=== PATIENT | male | born 1975 | race Caucasian/White ===

== ENCOUNTER 2018-02-19 00:14 | Emergency (ER) | payer MEDICAID ==
[~2018-02-19] VITALS: Ht 177.8 cm; Wt 100.0 kg
[~2018-02-19 00:14] MED LIST: CLIN300C85 PO; OMEP20CA4 PO; TOLN30CR TP
[2018-02-19] MEDS ORDERED: predniSONE 20 mg tablet PO ONE (00:40)
[2018-02-19] MEDS ORDERED: PRED20TA PO (00:43)
[2018-02-19 00:55] VITALS: BP 183/109
== END 2018-02-19 00:56 | disposition home or self-care (01) ==
LOC: ER 00:14
DX: R21 Rash and other nonspecific skin eruption (principal); F15.90 Other stimulant use, unspecified, uncomplicated; F17.200 Nicotine dependence, unspecified, uncomplicated; Z79.2 Long term (current) use of antibiotics; Z79.899 Other long term (current) drug therapy
CPT/HCPCS: 99283; J7512

== ENCOUNTER 2018-04-20 21:52 | Emergency (ER) | payer MEDICAID ==
[~2018-04-20] VITALS: Ht 177.8 cm; Wt 85.0 kg
[2018-04-20] MEDS ORDERED: ondansetron/PF 4mg/2ml inj IV ONE (22:05)
[2018-04-20] MEDS ORDERED: normal saline 1000ML IV soln IVB ONE (22:05)
[2018-04-20 23:12] LABS: BASOPHILS % (AUTO) 0 % (0-1); EOSINOPHILS # (AUTO) 0.7 X10'3 (0-0.9); HEMATOCRIT 45.9 % (42.0-52.0); HEMOGLOBIN 15.9 g/dl (14.0-17.9); LYMPHOCYTES # (AUTO) 1.4 X10'3 (1.1-4.8); LYMPHOCYTES % (AUTO) 7.6 % (21-51); MEAN CORPUSCULAR HEMOGLOBIN 29.8 PG (27.0-31.0); MEAN CORPUSCULAR HGB CONC 34.6 % (33.0-36.5); MEAN CORPUSCULAR VOLUME 86.1 FL (78-98); MEAN PLATELET VOLUME 7.9 FL (7.4-10.4); MONOCYTES # (AUTO) 0.7 X10'3 (0-0.9); NEUTROPHILS # (AUTO) 15.5 X10'3 (1.8-7.7); NEUTROPHILS % (AUTO) 84.4 % (42-75); PLATELET COUNT 231 X10'3 (140-440); RED BLOOD COUNT 5.33 X10'6 (4.70-6.10); RED CELL DISTRIBUTION WIDTH 14.1 % (11.5-14.5); WHITE BLOOD COUNT 18.3 X10'3 (4.5-11.0)
[2018-04-20 23:27] LABS: ALANINE AMINOTRANSFERASE 37 U/L (12-78); ALBUMIN 3.3 G/DL (3.4-5.0); ALBUMIN/GLOBULIN RATIO 1.2 (1.1-1.5); ALKALINE PHOSPHATASE 85 IU/L (46-116); ANION GAP 7 (8-16); ASPARTATE AMINO TRANSFERASE 9 U/L (10-37); BILIRUBIN,TOTAL 0.7 MG/DL (0.1-1.0); BLOOD UREA NITROGEN 18 MG/DL (7-18); BUN/CREATININE RATIO 17.1 (5.4-32.0); CALCIUM 7.6 MG/DL (8.5-10.1); CHLORIDE 108 MMOL/L (99-107); CREATININE 1.05 MG/DL (0.60-1.10); GLUCOSE 98 MG/DL (70-104); LIPASE 111 U/L (73-393); POTASSIUM 3.8 MMOL/L (3.5-5.1); SODIUM 139 MMOL/L (135-145); TOTAL CARBON DIOXIDE 23.9 MMOL/L (24-32); eGFR 77 ML/MIN
[2018-04-20 23:28] LABS: ETHANOL < 0.010 GM/DL (0.0-0.010)
[2018-04-20] MEDS ORDERED: ONDA4TAB9 SL (23:30)
[2018-04-20 23:36] VITALS: BP 131/69
== END 2018-04-20 23:42 | disposition home or self-care (01) ==
LOC: ER 21:53
DX: K52.9 Noninfective gastroenteritis and colitis, unspecified (principal); R10.31 Right lower quadrant pain; I10 Essential (primary) hypertension; F15.90 Other stimulant use, unspecified, uncomplicated; Z88.5 Allergy status to narcotic agent; Z88.8 Allergy status to other drugs, medicaments and biological substances; Z79.2 Long term (current) use of antibiotics; Z79.899 Other long term (current) drug therapy
CPT/HCPCS: 36415; 80053; 80320; 83690; 85025; 96360; 99284; J7030

== ENCOUNTER 2018-08-21 18:59 | Emergency (ER) | payer MEDICAID ==
[~2018-08-21] VITALS: Ht 180.3 cm; Wt 100.0 kg
[2018-08-21] MEDS ORDERED: penicillin V potassium 500mg tablet PO ONE (21:10)
[2018-08-21] MEDS ORDERED: PENI500T2 PO (21:12)
[2018-08-21 21:20] VITALS: BP 128/88
== END 2018-08-21 21:21 | disposition home or self-care (01) ==
LOC: ER 18:59
DX: J02.0 Streptococcal pharyngitis (principal); I10 Essential (primary) hypertension; F15.90 Other stimulant use, unspecified, uncomplicated; Z88.5 Allergy status to narcotic agent; Z88.8 Allergy status to other drugs, medicaments and biological substances; Z79.2 Long term (current) use of antibiotics; Z79.899 Other long term (current) drug therapy
CPT/HCPCS: 71045; 87880; 99284

== ENCOUNTER 2018-10-20 17:45 | Emergency (ER) | payer MEDICAID ==
[~2018-10-20] VITALS: Ht 180.3 cm; Wt 98.0 kg
[2018-10-20 18:08] VITALS: BP 150/107
== END 2018-10-20 20:22 | disposition left against medical advice (07) ==
LOC: ER 17:46
DX: R07.89 Other chest pain (principal); Z53.21 Procedure and treatment not carried out due to patient leaving prior to being seen by health care provider
CPT/HCPCS: 93005

== ENCOUNTER 2021-07-28 22:03 | Emergency (ER) | payer MEDICAID ==
[~2021-07-28] VITALS: Ht 180.3 cm; Wt 96.7 kg
[~2021-07-28 22:03] MED LIST changes: +CLIN-97 PO; -CLIN300C85 PO
[2021-07-28 22:45] LABS: BASOPHILS % (AUTO) 0.4 % (0-1); EOSINOPHILS # (AUTO) 0.3 X10'3 (0-0.9); EOSINOPHILS % (AUTO) 2.8 % (0-6); HEMATOCRIT 47.5 % (42.0-52.0); HEMOGLOBIN 16.1 g/dl (14.0-17.9); LYMPHOCYTES # (AUTO) 1.7 X10'3 (1.1-4.8); LYMPHOCYTES % (AUTO) 14.4 % (21-51); MEAN CORPUSCULAR HEMOGLOBIN 29.4 PG (27.0-31.0); MEAN CORPUSCULAR VOLUME 86.6 FL (78-98); MEAN PLATELET VOLUME 7.2 FL (7.4-10.4); MONOCYTES # (AUTO) 0.2 X10'3 (0-0.9); MONOCYTES % (AUTO) 1.8 % (2-12); NEUTROPHILS # (AUTO) 9.3 X10'3 (1.8-7.7); NEUTROPHILS % (AUTO) 80.6 % (42-75); PLATELET COUNT 293 X10'3 (140-440); RED BLOOD COUNT 5.49 X10'6 (4.70-6.10); RED CELL DISTRIBUTION WIDTH 13.9 % (11.5-14.5); WHITE BLOOD COUNT 11.5 X10'3 (4.5-11.0)
--- NOTE | 2021-07-28 22:45 | NUR ---
STROKE RN AT BEDSIDE, TELENEURO HAS BEEN CALLED, ENID IS AT BEDSIDE ON STANDBY, HEAD CT COMPLETED, LABS DRAWN, ER MD HAS EVALUATED PT
[2021-07-28 22:48] LABS: PARTIAL THROMBOPLASTIN TIME 27 SECONDS (22-32)
[2021-07-28 22:50] LABS: ANION GAP 12 (8-16); BILIRUBIN,TOTAL 0.4 MG/DL (0.1-1.0); BLOOD UREA NITROGEN 14 MG/DL (7-18); BUN/CREATININE RATIO 13.1 (5.4-32.0); CALCIUM 9.2 MG/DL (8.5-10.1); CHLORIDE 105 MMOL/L (99-107); CREATININE 1.07 MG/DL (0.60-1.10); GLUCOSE 93 MG/DL (70-104); POTASSIUM 3.7 MMOL/L (3.5-5.1); SODIUM 145 MMOL/L (135-145); TOTAL CARBON DIOXIDE 28.1 MMOL/L (24-32); TOTAL PROTEIN 7.7 G/DL (6.4-8.2); eGFR 75 ML/MIN
[2021-07-28 22:51] LABS: ALANINE AMINOTRANSFERASE 29 U/L (12-78); ALBUMIN 4.3 G/DL (3.4-5.0); ALBUMIN/GLOBULIN RATIO 1.3 (1.1-1.5); ALKALINE PHOSPHATASE 107 IU/L (46-116); ASPARTATE AMINO TRANSFERASE 19 U/L (10-37)
[2021-07-28 23:10] LABS: TOTAL CELLS COUNTED 100
--- NOTE | 2021-07-28 23:10 | NUR ---
I did not do a swallow eval since he is vomiting and did not want to gag him or give him water.
[2021-07-28 23:11] LABS: PLATELET ESTIMATE NORMAL
[2021-07-28 23:12] LABS: POIKILOCYTOSIS FEW; TEAR DROP CELLS FEW
[2021-07-28] MEDS ORDERED: iohexol 350MG/ML 100ml bottle IV ONE (23:15)
--- NOTE | 2021-07-28 23:19 | NUR ---
For his neuro assessment he did have blurred vision in the right eye; and he said he can only see my eyelashes with the right eye but he did track with the right eye. He also said that the right arm felt smoother and that his right side of the face was still numb but better than when he came into the ER. He also said that the right eye was blurry but not as blury as it had been. He is also complainig of dizziness at this time.
[2021-07-28] MEDS ORDERED: ondansetron/PF 4mg/2ml inj IV ONE (23:20)
--- NOTE | 2021-07-28 23:30 | NUR ---
Late note, I did tell the neurologist that patient was c/o that his throat on the right side was swelling. There is a CTA head and neck with contrast ordered at this time.
--- NOTE | 2021-07-29 05:53 | NUR ---
PT UNHOOKED HIMSELF FROM THE MONITOR AND AMBULATED TO BATHROOM AND BACK TO HIS GURNEY. WHEN I RE-ASSESSED PT, HE REPORTS THAT THE BLURRINESS IS GONE WELL THE NUMBNESS TO HIS RIGHT HAND. HE IS STILL COMPLAINING OF HIS BOWEL MOVEMENTS 'SMELLING TOXIC' HE STATED, 'I KEEP GETTING WEIRD THINGS HAPPEN TO ME THAT NO ONE CAN UNDERSTAND'
[2021-07-29 06:18] VITALS: BP 143/90
== END 2021-07-29 06:22 | disposition home or self-care (01) ==
LOC: ER 22:04
DX: R53.1 Weakness (principal); T43.625A Adverse effect of amphetamines, initial encounter; Y92.89 Other specified places as the place of occurrence of the external cause
CPT/HCPCS: 36415; 70450; 70496; 70498; 71045; 80053; 82948; 84484; 85007; 85025; 85610; 85730; 93005; 96374; 99285; J2405; Q9967

== ENCOUNTER 2021-08-27 13:34 | Emergency (ER) | payer MEDICAID ==
[~2021-08-27] VITALS: Ht 177.8 cm; Wt 93.2 kg
[2021-08-27 16:04] VITALS: BP 154/100
[2021-08-27 17:21] LABS: CLARITY,URINE SLIGHTLY CLOUDY (Clear); COLOR,URINE YELLOW (Yellow); GLUCOSE, URINE NEGATIVE (Neg); KETONES,URINE TRACE mg/dl (Neg); LEUKOCYTE ESTERASE ,URINE SMALL (Neg); NITRITES, URINE NEGATIVE (Neg); OCCULT BLOOD,URINE NEGATIVE (Neg); PROTEIN,URINE NEGATIVE (Neg); UROBILINOGEN,URINE 0.2 E.U/dL (0.2-1.0)
[2021-08-27 17:25] LABS: UA COLLECTION TYPE URINAL
[2021-08-27 17:33] LABS: MUCUS STRANDS MANY /LPF (Neg); SQUAMOUS EPITHELIAL CELL,UR FEW /LPF (FEW)
[2021-08-27 17:37] LABS: HYALINE CASTS 0-3 /LPF (NEGATIVE)
[2021-08-27 17:39] LABS: BACTERIA,URINE FEW /HPF (Neg); RBC,URINE 0-2 /HPF (0-2)
[2021-08-27 17:45] LABS: WBC,URINE 20-30 /HPF (0-4)
--- NOTE | 2021-08-27 20:22 | NUR ---
PATIENT IN [facility], STATES PAIN IS INCREASING. 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 THIS HOOP DRIVING MACHINE OPERATOR ADVISED THAT THE COMPUTER GRAPHICS ILLUSTRATOR WOULD BE ADVIDED OF HIS INCREASING DISCOMFORT. PATIENT IS DRINKING WATER, HE STATES THAT HE CAN'T VOID NOW.
== END 2021-08-27 21:12 | disposition left against medical advice (07) ==
LOC: ER 13:35
DX: L23.7 Allergic contact dermatitis due to plants, except food (principal); I10 Essential (primary) hypertension; F15.90 Other stimulant use, unspecified, uncomplicated; R30.0 Dysuria; Z88.8 Allergy status to other drugs, medicaments and biological substances; Z79.2 Long term (current) use of antibiotics; Z79.899 Other long term (current) drug therapy
CPT/HCPCS: 36415; 81001; 87088; 87491

== ENCOUNTER 2022-01-02 03:00 | Emergency (ER) | payer MEDICAID ==
[~2022-01-02] VITALS: Ht 180.3 cm; Wt 93.2 kg
[2022-01-02] MEDS ORDERED: SULF1TAB49 PO (05:18)
[2022-01-02] MEDS ORDERED: TETanus/Pertussis (Acell)/Diphther VAC/PF (Tdap-Adult) 0.5ml syringe IMVAC ONE (05:20)
[2022-01-02] MEDS ORDERED: ondansetron 4mg rapidly disintigrating tab PO ONE (05:20)
[2022-01-02] MEDS ORDERED: sulfamethoxazole/trimethoprim DS (800/160mg) tablet PO ONE (05:20)
[2022-01-02 05:58] VITALS: BP 122/75
== END 2022-01-02 06:00 | disposition home or self-care (01) ==
LOC: ER 03:01
DX: L02.414 Cutaneous abscess of left upper limb (principal); F15.10 Other stimulant abuse, uncomplicated; I10 Essential (primary) hypertension; Z88.5 Allergy status to narcotic agent; Z79.899 Other long term (current) drug therapy
CPT/HCPCS: 10060; 90471; 90715; 99283

== ENCOUNTER 2022-02-03 01:18 | Emergency (ER) | payer MEDICAID ==
[~2022-02-03] VITALS: Ht 180.3 cm; Wt 45.5 kg
[2022-02-03 01:23] VITALS: BP 156/95
[2022-02-03] MEDS ORDERED: ondansetron 4mg rapidly disintigrating tab PO ONE (01:40)
[2022-02-03] MEDS ORDERED: sulfamethoxazole/trimethoprim DS (800/160mg) tablet PO ONE (01:40)
[2022-02-03] MEDS ORDERED: SULF1TAB49 PO (01:41)
== END 2022-02-03 02:01 | disposition home or self-care (01) ==
LOC: ER 01:19
DX: L03.317 Cellulitis of buttock (principal); I10 Essential (primary) hypertension; F15.90 Other stimulant use, unspecified, uncomplicated; Z88.8 Allergy status to other drugs, medicaments and biological substances; Z79.2 Long term (current) use of antibiotics; Z79.899 Other long term (current) drug therapy
CPT/HCPCS: 99283

== ENCOUNTER 2022-03-09 20:20 | Emergency (ER) | payer MEDICAID ==
[~2022-03-09] VITALS: Ht 180.3 cm; Wt 91.0 kg
[2022-03-09] MEDS ORDERED: acetaminophen 325mg tablet PO STA (20:48)
[2022-03-09 21:29] LABS: BASOPHILS % (AUTO) 0.7 % (0-1); EOSINOPHILS # (AUTO) 0.3 X10'3 (0-0.9); EOSINOPHILS % (AUTO) 3.8 % (0-6); HEMATOCRIT 40.8 % (42.0-52.0); HEMOGLOBIN 13.8 g/dl (14.0-17.9); LYMPHOCYTES # (AUTO) 0.9 X10'3 (1.1-4.8); LYMPHOCYTES % (AUTO) 12.6 % (21-51); MEAN CORPUSCULAR HEMOGLOBIN 28.9 PG (27.0-31.0); MEAN CORPUSCULAR HGB CONC 33.8 g/dL (33.0-36.5); MEAN CORPUSCULAR VOLUME 85.6 FL (78-98); MEAN PLATELET VOLUME 7.5 FL (7.4-10.4); MONOCYTES # (AUTO) 0.6 X10'3 (0-0.9); MONOCYTES % (AUTO) 8.8 % (2-12); NEUTROPHILS # (AUTO) 5.2 X10'3 (1.8-7.7); NEUTROPHILS % (AUTO) 74.1 % (42-75); PLATELET COUNT 197 X10'3 (140-440); RED BLOOD COUNT 4.76 X10'6 (4.70-6.10); RED CELL DISTRIBUTION WIDTH 14.3 % (11.5-14.5)
[2022-03-09 21:33] LABS: ALANINE AMINOTRANSFERASE 24 U/L (12-78); ALBUMIN 3.7 G/DL (3.4-5.0); ALBUMIN/GLOBULIN RATIO 1.2 (1.1-1.5); ALKALINE PHOSPHATASE 106 IU/L (46-116); ANION GAP 6 (8-16); ASPARTATE AMINO TRANSFERASE 21 U/L (10-37); BILIRUBIN,TOTAL 0.5 MG/DL (0.1-1.0); BLOOD UREA NITROGEN 15 MG/DL (7-18); BUN/CREATININE RATIO 12.2 (5.4-32.0); CALCIUM 8.8 MG/DL (8.5-10.1); CHLORIDE 106 MMOL/L (99-107); CREATININE 1.23 MG/DL (0.60-1.10); GLUCOSE 101 MG/DL (70-104); MAGNESIUM 2.2 MG/DL (1.5-2.4); POTASSIUM 3.4 MMOL/L (3.5-5.1); SODIUM 141 MMOL/L (135-145); TOTAL CARBON DIOXIDE 28.9 MMOL/L (24-32); TOTAL PROTEIN 6.7 G/DL (6.4-8.2); eGFR 63 ML/MIN
[2022-03-09 22:03] VITALS: BP 128/78
== END 2022-03-09 22:13 | disposition home or self-care (01) ==
LOC: ER 20:20
DX: U07.1 COVID-19 (principal); I10 Essential (primary) hypertension; F15.10 Other stimulant abuse, uncomplicated; Z88.5 Allergy status to narcotic agent
CPT/HCPCS: 36415; 71045; 80053; 83605; 83735; 84145; 85025; 87040; 87502; 87503; 87635; 93005; 99285; C9803

== ENCOUNTER 2023-02-02 17:47 | Inpatient (IN) | payer MEDICAID ==
[~2023-02-02] VITALS: Ht 182.9 cm; Wt 90.9 kg
[2023-02-02] MEDS ORDERED: bacitracin 15gm ointment TP ONE (19:35)
[2023-02-02] MEDS ORDERED: LIDOcaine 1% 30ml preserv. free vial IJ ONE (19:40)
[2023-02-02] MEDS ORDERED: cephalexin 250mg capsule PO ONE (20:20)
[2023-02-02] MEDS ORDERED: piperacillin/tazo 3.375gm/50ml 50 ML IV ONE (21:55)
[2023-02-02] MEDS ORDERED: vancomycin/NS 1 GM ADD-VANTAGE 250 ML IV ONE (21:55)
[2023-02-02 22:24] LABS: BASOPHILS # (AUTO) 0.1 X10'3 (0-0.2); BASOPHILS % (AUTO) 0.7 % (0-1); EOSINOPHILS # (AUTO) 0.5 X10'3 (0-0.9); EOSINOPHILS % (AUTO) 6.2 % (0-6); HEMATOCRIT 43.6 % (42.0-52.0); HEMOGLOBIN 14.8 g/dl (14.0-17.9); LYMPHOCYTES # (AUTO) 2.5 X10'3 (1.1-4.8); LYMPHOCYTES % (AUTO) 28.9 % (21-51); MEAN CORPUSCULAR HEMOGLOBIN 29.5 PG (27.0-31.0); MEAN CORPUSCULAR VOLUME 86.7 FL (78-98); MEAN PLATELET VOLUME 7.3 FL (7.4-10.4); MONOCYTES # (AUTO) 0.6 X10'3 (0-0.9); MONOCYTES % (AUTO) 6.7 % (2-12); NEUTROPHILS % (AUTO) 57.5 % (42-75); PLATELET COUNT 238 X10'3 (140-440); RED BLOOD COUNT 5.03 X10'6 (4.70-6.10); RED CELL DISTRIBUTION WIDTH 14.2 % (11.5-14.5); WHITE BLOOD COUNT 8.8 X10'3 (4.5-11.0)
[2023-02-02 22:37] LABS: ALANINE AMINOTRANSFERASE 21 U/L (12-78); ALBUMIN 3.9 G/DL (3.4-5.0); ALBUMIN/GLOBULIN RATIO 1.4 (1.1-1.5); ALKALINE PHOSPHATASE 102 IU/L (46-116); ANION GAP 2 (8-16); ASPARTATE AMINO TRANSFERASE 18 U/L (10-37); BILIRUBIN,TOTAL 0.6 MG/DL (0.1-1.0); BLOOD UREA NITROGEN 12 MG/DL (7-18); BUN/CREATININE RATIO 11.8 (10.0-20.0); CALCIUM 8.8 MG/DL (8.5-10.1); CHLORIDE 106 MMOL/L (99-107); CREATININE 1.02 MG/DL (0.60-1.10); GLUCOSE 94 MG/DL (70-104); POTASSIUM 3.9 MMOL/L (3.5-5.1); SODIUM 139 MMOL/L (135-145); TOTAL CARBON DIOXIDE 31.3 MMOL/L (24-32); TOTAL PROTEIN 6.6 G/DL (6.4-8.2); eGFR 78 ML/MIN
[2023-02-02] MEDS ORDERED: NO HOME MEDS (23:09)
[2023-02-02] MEDS ORDERED: potassium Cl 20 mEq SR tablet PO PRN ×2 (23:25)
[2023-02-02] MEDS ORDERED: magnesium Cl slow-release 64mg tablet PO PRN (23:25)
[2023-02-02] MEDS ORDERED: morphine 2 MG/ML inj. syringe IV PRN ×2 (23:25)
[2023-02-02] MEDS ORDERED: magnesium 2GM in 50ml NS 50 ML IV PRN (23:25)
[2023-02-02] MEDS ORDERED: acetaminophen 325mg tablet PO PRN (23:25)
[2023-02-02] MEDS ORDERED: mag hydrox/Alum hydrox/simeth 30ml oral suspension PO PRN (23:25)
[2023-02-02] MEDS ORDERED: magnesium 4gm in 100ml NS 100 ML IV PRN (23:25)
[2023-02-02] MEDS ORDERED: ondansetron/PF 4mg/2ml inj IV PRN (23:25)
[2023-02-02] MEDS ORDERED: magnesium hydroxide 30ml (MOM) UD suspension PO PRN (23:25)
[2023-02-02] MEDS ORDERED: potassium Cl 40MEQ/1/2NS 520ml 520 ML IV PRN (23:25)
[2023-02-02] MEDS ORDERED: metoprolol tartrate 50mg tablet PO ONE (23:35)
[2023-02-03] MEDS ORDERED: VANCOmycin 1250MG/NS 250ml Bag 250 ML IV SCH
[2023-02-03] MEDS ORDERED: metoprolol tartrate 12.5mg (1/2 tablet) PO ONE (00:10)
[2023-02-03] MEDS: normal saline 1000ml 1,000 ML IV SCH ×3 (00:14→20:32)
--- NOTE | 2023-02-03 03:00 | NUR ---
Patient in room ORTHO 4006. I have received report from hamzah wayne and had the opportunity to ask questions and assume patient care.
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
[2023-02-03 04:22] VITALS: BP 161/93
[2023-02-03 06:00] VITALS: BP 159/101
--- NOTE | 2023-02-03 06:45 | NUR ---
Patient in room ORTHO 4006. I have received report from Gillian SOTO and had the opportunity to ask questions and assume patient care.
[2023-02-03 06:55] LABS: BASOPHILS # (AUTO) 0.1 X10'3 (0-0.2); BASOPHILS % (AUTO) 0.9 % (0-1); EOSINOPHILS # (AUTO) 0.5 X10'3 (0-0.9); EOSINOPHILS % (AUTO) 6.3 % (0-6); HEMATOCRIT 43.8 % (42.0-52.0); HEMOGLOBIN 14.7 g/dl (14.0-17.9); LYMPHOCYTES # (AUTO) 2.3 X10'3 (1.1-4.8); LYMPHOCYTES % (AUTO) 27.6 % (21-51); MEAN CORPUSCULAR HEMOGLOBIN 29.2 PG (27.0-31.0); MEAN CORPUSCULAR HGB CONC 33.6 g/dL (33.0-36.5); MEAN CORPUSCULAR VOLUME 86.8 FL (78-98); MEAN PLATELET VOLUME 7.5 FL (7.4-10.4); MONOCYTES # (AUTO) 0.6 X10'3 (0-0.9); MONOCYTES % (AUTO) 7.1 % (2-12); NEUTROPHILS # (AUTO) 4.8 X10'3 (1.8-7.7); NEUTROPHILS % (AUTO) 58.1 % (42-75); PLATELET COUNT 235 X10'3 (140-440); RED BLOOD COUNT 5.05 X10'6 (4.70-6.10); RED CELL DISTRIBUTION WIDTH 14.4 % (11.5-14.5); WHITE BLOOD COUNT 8.3 X10'3 (4.5-11.0)
[2023-02-03 07:08] LABS: ALANINE AMINOTRANSFERASE 16 U/L (12-78); ALBUMIN 3.4 G/DL (3.4-5.0); ALBUMIN/GLOBULIN RATIO 1.3 (1.1-1.5); ALKALINE PHOSPHATASE 98 IU/L (46-116); ANION GAP 6 (8-16); ASPARTATE AMINO TRANSFERASE 15 U/L (10-37); BILIRUBIN,TOTAL 0.8 MG/DL (0.1-1.0); BLOOD UREA NITROGEN 14 MG/DL (7-18); BUN/CREATININE RATIO 16.1 (10.0-20.0); CALCIUM 8.8 MG/DL (8.5-10.1); CHLORIDE 106 MMOL/L (99-107); CREATININE 0.87 MG/DL (0.60-1.10); GLUCOSE 97 MG/DL (70-104); MAGNESIUM 2.2 MG/DL (1.5-2.4); POTASSIUM 3.7 MMOL/L (3.5-5.1); SODIUM 139 MMOL/L (135-145); TOTAL CARBON DIOXIDE 26.7 MMOL/L (24-32); TOTAL PROTEIN 6.1 G/DL (6.4-8.2); eGFR > 90 ML/MIN
[2023-02-03] MEDS: piperacillin/tazo 3.375gm/50ml 50 ML IV SCH ×3 (07:19→16:56)
[2023-02-03] MEDS: K and/or MAG REPLACEMENT MC SCH ×2 (08:00→20:00)
[2023-02-03 09:10] VITALS: BP 140/99
[2023-02-03] MEDS: metoprolol tartrate 12.5mg (1/2 tablet) PO SCH ×2 (09:11→20:40)
[2023-02-03] MEDS: docusate sod 100mg capsule PO SCH ×2 (09:12→20:32)
[2023-02-03 10:00] VITALS: BP 135/95
[2023-02-03] MEDS: oxyCODONE/APAP 5-325mg tablet PO PRN (12:36)
[2023-02-03] MEDS: vancomycin/NS 1 GM ADD-VANTAGE 250 ML IV SCH ×2 (12:50→20:32)
--- NOTE | 2023-02-03 14:30 | NUR ---
Call placed to pharmacy r/t new IV vanco order. Pharmacist stated that the 1250mg dose was discontinued, resource nurse hung 1250 vanco prior to discontinue. Pharmacist notified and stated that med was not marked as administered. Verified in room with charge nurse that 1200 1250mg vanco order was hung and complete. Pharmacist notified and instructed charge nurse to stacy med as administered and they will retime next dose.
--- NOTE | 2023-02-03 14:43 | NUR ---
The noon dose of 1250 mg Vancomycin was hung by the resource nurse Shira Smith but not scanned. Went to room with Cande JARRETT to verify medication was administered at noon, it was the right dose and right time prior to the change. Addendum: 02/03/23 at 1446 by Marcelle Bose RN Non admined the next noon dose of 1000mg Vancomycin
--- NOTE | 2023-02-03 18:30 | NUR ---
Patient in room ORTHO 4006. I have received report from BRITTANY Castellon and had the opportunity to ask questions and assume patient care. Addendum: 02/03/23 at 1830 by uJli Ramirez RN Amended: Links added.
[2023-02-03 18:31] VITALS: BP 125/83
--- NOTE | 2023-02-03 18:39 | NUR ---
Problems reprioritized. Patient report given, questions answered & plan of care reviewed with Juli SOTO.
--- NOTE | 2023-02-03 18:53 | NUR ---
Student documentation: I have reviewed and agree with all interventions, assessments performed and documented by Cande JARRETT. Added my own findings.
[2023-02-03 22:00] VITALS: BP 165/90
[2023-02-04] VITALS (16 sets, daily range): BP systolic 114–170; BP diastolic 71–102
[2023-02-04] MEDS: oxyCODONE/APAP 5-325mg tablet PO PRN ×4 (00:07→21:30)
[2023-02-04] MEDS: piperacillin/tazo 3.375gm/50ml 50 ML IV SCH ×4 (00:07→17:00)
[2023-02-04] MEDS: normal saline 1000ml 1,000 ML IV SCH ×2 (05:25→15:33)
[2023-02-04] MEDS: vancomycin/NS 1 GM ADD-VANTAGE 250 ML IV SCH ×3 (05:29→23:05)
[2023-02-04 06:25] LABS: BASOPHILS # (AUTO) 0.1 X10'3 (0-0.2); BASOPHILS % (AUTO) 0.7 % (0-1); EOSINOPHILS # (AUTO) 0.4 X10'3 (0-0.9); EOSINOPHILS % (AUTO) 5.2 % (0-6); HEMATOCRIT 43.8 % (42.0-52.0); HEMOGLOBIN 14.6 g/dl (14.0-17.9); MEAN CORPUSCULAR HEMOGLOBIN 29.2 PG (27.0-31.0); MEAN CORPUSCULAR HGB CONC 33.4 g/dL (33.0-36.5); MEAN CORPUSCULAR VOLUME 87.2 FL (78-98); MEAN PLATELET VOLUME 7.7 FL (7.4-10.4); MONOCYTES # (AUTO) 0.5 X10'3 (0-0.9); MONOCYTES % (AUTO) 6.2 % (2-12); NEUTROPHILS # (AUTO) 5.3 X10'3 (1.8-7.7); NEUTROPHILS % (AUTO) 63.9 % (42-75); PLATELET COUNT 221 X10'3 (140-440); RED BLOOD COUNT 5.02 X10'6 (4.70-6.10); RED CELL DISTRIBUTION WIDTH 14.4 % (11.5-14.5); WHITE BLOOD COUNT 8.3 X10'3 (4.5-11.0)
[2023-02-04 06:33] LABS: APTT 32 SECONDS (22-32)
[2023-02-04] MEDS ORDERED: BUPIVAcaine/PF 2.5 mg/ml (0.25%) 30ml vial ONE (06:39)
[2023-02-04] MEDS ORDERED: vancomycin 1,000mg inj ONE (06:39)
[2023-02-04 06:47] LABS: ALANINE AMINOTRANSFERASE 19 U/L (12-78); ALBUMIN 3.4 G/DL (3.4-5.0); ALBUMIN/GLOBULIN RATIO 1.3 (1.1-1.5); ALKALINE PHOSPHATASE 93 IU/L (46-116); ANION GAP 5 (8-16); ASPARTATE AMINO TRANSFERASE 11 U/L (10-37); BILIRUBIN,TOTAL 0.5 MG/DL (0.1-1.0); BLOOD UREA NITROGEN 17 MG/DL (7-18); BUN/CREATININE RATIO 18.3 (10.0-20.0); CALCIUM 8.5 MG/DL (8.5-10.1); CHLORIDE 106 MMOL/L (99-107); CREATININE 0.93 MG/DL (0.60-1.10); GLUCOSE 95 MG/DL (70-104); MAGNESIUM 2.4 MG/DL (1.5-2.4); POTASSIUM 3.9 MMOL/L (3.5-5.1); SODIUM 138 MMOL/L (135-145); TOTAL CARBON DIOXIDE 26.9 MMOL/L (24-32); eGFR 87 ML/MIN
[2023-02-04] MEDS ORDERED: ondansetron/PF 4mg/2ml inj IV PRN (07:15)
[2023-02-04] MEDS ORDERED: labetalol 20mg/4ml (5mg/ml) syringe IV PRN (07:15)
[2023-02-04] MEDS ORDERED: proCHLORperazine 10 MG/2 ml inj IV PRN (07:15)
[2023-02-04] MEDS ORDERED: morphine 4 MG/ML inj SYRINge IV PRN (07:15)
[2023-02-04] MEDS ORDERED: hydrALAZINE 20mg/ml inj. IV PRN (07:15)
[2023-02-04] MEDS ORDERED: ringers solution, lacted 1,000 ML IV SCH (07:15)
[2023-02-04] MEDS ORDERED: meperidine/PF 25mg/ml syringe IV PRN ×3 (07:15)
[2023-02-04] MEDS ORDERED: acetaminophen 1,000mg/100ml IV 100 ML IV PRN (07:15)
[2023-02-04] MEDS ORDERED: morphine 2 MG/ML inj. syringe IV PRN (07:15)
[2023-02-04] MEDS ORDERED: fentaNYL/PF 50MCG/1 ML 2ML syringe ONE (07:29)
[2023-02-04] MEDS ORDERED: propofol inj 20 ML IV ONE (07:40)
[2023-02-04] MEDS ORDERED: LIDOcaine 2% (20mg/ml) 5ml vial ONE (07:40)
[2023-02-04] MEDS ORDERED: ondansetron/PF 4mg/2ml inj ONE (07:40)
[2023-02-04] MEDS ORDERED: dexamethasone sod phosphate 4mg/ml inj. ONE (07:40)
[2023-02-04] MEDS ORDERED: midazolam 1 mg/ML 2ml injection ONE (07:40)
[2023-02-04] MEDS: docusate sod 100mg capsule PO SCH ×2 (08:00→21:28)
[2023-02-04] MEDS: metoprolol tartrate 12.5mg (1/2 tablet) PO SCH ×3 (08:00→21:29)
[2023-02-04] MEDS: K and/or MAG REPLACEMENT MC SCH ×2 (08:00→20:00)
--- NOTE | 2023-02-04 08:01 | NUR ---
Received from OR via SURGICAL BED , accompanied by Anesthesiologist AZIZA and report given by Anesthesiolgist. PATIENT WITH 20G PIV IN RIGHT UE RUNNING LR AT 00. 10L MASK ON WITH 99% SATURATIONS. LEFT ELBOW IN MG BANDAGE. + RADIAL PULSE PRESENT THAT HAS ASTRONG RADIAL PULSE UPON ARRIVAL FROM THE OR. VSS AT THIS TIME. WILL CONTIUE TO ASSESS AND TREAT NEEDED. Addendum: 02/04/23 at 0811 by Luis Delaney RN, RN Amended: Links added.
--- NOTE | 2023-02-04 08:16 | NUR ---
PATIENT ROUSED SELF FROM ANESTHESIA. I REMOVED ORAL AIRWAY AT THIS TIME AND PATIENT STATES HE HAS NO PAIN AT THIS TIME. Addendum: 02/04/23 at 0816 by Luis Delaney RN, RN Amended: Links added.
--- NOTE | 2023-02-04 08:41 | NUR ---
REPORT GIVEN AND ALL QUESTIONS ANSWERED. PATIENT TRANSFERRED TO ORTHO.TRANSFER: NO BELONGINGS PRESENT A. RN PRESENT ALL CRITERIA FOR TRANSFER BACK TO THE FLOOR HAS BEEN ACHIEVED. VSS. PAIN AT A TOLERABLE LEVEL. BED LOW, CALL LIGHT PRESENT AND 2 RAILS DOWN. RN AWARE THAT PATIENT HAS ARRIVED. TO ACCEPT CARE OF PATIENT. Addendum: 02/04/23 at 7985 by Luis Delaney RN, RN Amended: Links added.
--- NOTE | 2023-02-04 09:32 | NUR ---
Patient returned from OR about 0900. Tolerating sips of water, pain medication given per orders, patient resting comfortably in bed. post op vitals set up. Left arm in misbah wrap and BL radial pulses palpable.
--- NOTE | 2023-02-04 18:33 | NUR ---
Problems reprioritized. Patient report given, questions answered & plan of care reviewed with Juli SOTO.
--- NOTE | 2023-02-04 18:40 | NUR ---
Patient in room ORTHO 4006. I have received report from BRITTANY Oswald and had the opportunity to ask questions and assume patient care. Addendum: 02/04/23 at 1843 by Juli Ramirez RN Amended: Links added.
[2023-02-04] MEDS ORDERED: VANCOMYCIN LEVEL IV ONE (20:30)
[2023-02-05] MEDS: piperacillin/tazo 3.375gm/50ml 50 ML IV SCH ×4 (00:23→23:39)
[2023-02-05] MEDS: normal saline 1000ml 1,000 ML IV SCH ×2 (01:25→20:08)
[2023-02-05] MEDS: vancomycin/NS 1 GM ADD-VANTAGE 250 ML IV SCH ×2 (05:18→14:39)
[2023-02-05 06:00] VITALS: BP 131/80
[2023-02-05 06:31] LABS: BASOPHILS % (AUTO) 0.2 % (0-1); EOSINOPHILS % (AUTO) 0.2 % (0-6); HEMATOCRIT 39.1 % (42.0-52.0); HEMOGLOBIN 13.2 g/dl (14.0-17.9); LYMPHOCYTES # (AUTO) 2.2 X10'3 (1.1-4.8); LYMPHOCYTES % (AUTO) 13.7 % (21-51); MEAN CORPUSCULAR HEMOGLOBIN 29.2 PG (27.0-31.0); MEAN CORPUSCULAR HGB CONC 33.8 g/dL (33.0-36.5); MEAN CORPUSCULAR VOLUME 86.5 FL (78-98); MEAN PLATELET VOLUME 7.9 FL (7.4-10.4); MONOCYTES # (AUTO) 0.9 X10'3 (0-0.9); MONOCYTES % (AUTO) 5.6 % (2-12); NEUTROPHILS # (AUTO) 12.7 X10'3 (1.8-7.7); NEUTROPHILS % (AUTO) 80.3 % (42-75); PLATELET COUNT 227 X10'3 (140-440); RED BLOOD COUNT 4.52 X10'6 (4.70-6.10); RED CELL DISTRIBUTION WIDTH 13.9 % (11.5-14.5); WHITE BLOOD COUNT 15.9 X10'3 (4.5-11.0)
--- NOTE | 2023-02-05 06:42 | NUR ---
Patient in room ORTHO 4006. I have received report from Juli and had the opportunity to ask questions and assume patient care.
[2023-02-05 07:03] LABS: ALANINE AMINOTRANSFERASE 15 U/L (12-78); ALBUMIN/GLOBULIN RATIO 1.2 (1.1-1.5); ALKALINE PHOSPHATASE 84 IU/L (46-116); ANION GAP 7 (8-16); ASPARTATE AMINO TRANSFERASE 9 U/L (10-37); BILIRUBIN,TOTAL 0.4 MG/DL (0.1-1.0); BLOOD UREA NITROGEN 22 MG/DL (7-18); BUN/CREATININE RATIO 24.2 (10.0-20.0); CALCIUM 8.4 MG/DL (8.5-10.1); CHLORIDE 107 MMOL/L (99-107); CREATININE 0.91 MG/DL (0.60-1.10); GLUCOSE 101 MG/DL (70-104); MAGNESIUM 2.2 MG/DL (1.5-2.4); POTASSIUM 4.2 MMOL/L (3.5-5.1); SODIUM 140 MMOL/L (135-145); TOTAL PROTEIN 5.6 G/DL (6.4-8.2); eGFR 89 ML/MIN
[2023-02-05] MEDS: K and/or MAG REPLACEMENT MC SCH ×2 (07:12→19:49)
[2023-02-05] MEDS: metoprolol tartrate 12.5mg (1/2 tablet) PO SCH ×2 (08:14→20:10)
[2023-02-05] MEDS: docusate sod 100mg capsule PO SCH ×2 (08:14→20:09)
[2023-02-05 10:00] VITALS: BP 144/86
[2023-02-05] MEDS: oxyCODONE/APAP 5-325mg tablet PO PRN ×2 (14:52→20:10)
[2023-02-05 18:00] VITALS: BP 168/80
--- NOTE | 2023-02-05 18:00 | NUR ---
Patient in room ORTHO 4006. I have received report from BRITTANY Ogden and had the opportunity to ask questions and assume patient care.
--- NOTE | 2023-02-05 18:10 | NUR ---
Patient in room ORTHO 4006. I have received report from BRITTANY Bowie and had the opportunity to ask questions and assume patient care.
--- NOTE | 2023-02-05 18:37 | NUR ---
Problems reprioritized. Patient report given, questions answered & plan of care reviewed with Magda.
[2023-02-05] MEDS: VANCOmycin 1250MG/NS 250ml Bag 250 ML IV SCH (20:09)
[2023-02-05 22:00] VITALS: BP 145/85
[2023-02-06] MEDS: VANCOmycin 1250MG/NS 250ml Bag 250 ML IV SCH ×2 (04:41→13:24)
--- NOTE | 2023-02-06 06:27 | NUR ---
Problems reprioritized. Patient report given, questions answered & plan of care reviewed with BRITTANY Vincent .
--- NOTE | 2023-02-06 06:31 | NUR ---
Patient in room ORTHO 4006. I have received report from darryl SOTO and had the opportunity to ask questions and assume patient care.
[2023-02-06 07:00] VITALS: BP 141/92
[2023-02-06] MEDS: K and/or MAG REPLACEMENT MC SCH (08:00)
[2023-02-06 08:26] LABS: ALANINE AMINOTRANSFERASE 20 U/L (12-78); ALBUMIN 3.2 G/DL (3.4-5.0); ALBUMIN/GLOBULIN RATIO 1.3 (1.1-1.5); ALKALINE PHOSPHATASE 85 IU/L (46-116); ANION GAP 5 (8-16); ASPARTATE AMINO TRANSFERASE 12 U/L (10-37); BILIRUBIN,TOTAL 0.3 MG/DL (0.1-1.0); BLOOD UREA NITROGEN 15 MG/DL (7-18); BUN/CREATININE RATIO 15.2 (10.0-20.0); CALCIUM 8.2 MG/DL (8.5-10.1); CHLORIDE 108 MMOL/L (99-107); CREATININE 0.99 MG/DL (0.60-1.10); GLUCOSE 146 MG/DL (70-104); MAGNESIUM 1.9 MG/DL (1.5-2.4); POTASSIUM 3.8 MMOL/L (3.5-5.1); SODIUM 140 MMOL/L (135-145); TOTAL CARBON DIOXIDE 27.3 MMOL/L (24-32); TOTAL PROTEIN 5.7 G/DL (6.4-8.2); eGFR 81 ML/MIN
[2023-02-06 08:41] LABS: BASOPHILS # (AUTO) 0.1 X10'3 (0-0.2); BASOPHILS % (AUTO) 0.7 % (0-1); EOSINOPHILS # (AUTO) 0.4 X10'3 (0-0.9); EOSINOPHILS % (AUTO) 3.3 % (0-6); HEMATOCRIT 40.1 % (42.0-52.0); HEMOGLOBIN 13.6 g/dl (14.0-17.9); LYMPHOCYTES # (AUTO) 2.5 X10'3 (1.1-4.8); LYMPHOCYTES % (AUTO) 22.4 % (21-51); MEAN CORPUSCULAR HEMOGLOBIN 29.3 PG (27.0-31.0); MEAN CORPUSCULAR VOLUME 86.2 FL (78-98); MEAN PLATELET VOLUME 7.8 FL (7.4-10.4); MONOCYTES # (AUTO) 0.6 X10'3 (0-0.9); MONOCYTES % (AUTO) 5.8 % (2-12); NEUTROPHILS # (AUTO) 7.6 X10'3 (1.8-7.7); NEUTROPHILS % (AUTO) 67.8 % (42-75); PLATELET COUNT 213 X10'3 (140-440); RED BLOOD COUNT 4.65 X10'6 (4.70-6.10); RED CELL DISTRIBUTION WIDTH 14.1 % (11.5-14.5); WHITE BLOOD COUNT 11.2 X10'3 (4.5-11.0)
[2023-02-06] MEDS: piperacillin/tazo 3.375gm/50ml 50 ML IV SCH (08:43)
[2023-02-06] MEDS: metoprolol tartrate 12.5mg (1/2 tablet) PO SCH (08:44)
[2023-02-06] MEDS: docusate sod 100mg capsule PO SCH (08:44)
[2023-02-06] MEDS: normal saline 1000ml 1,000 ML IV SCH (08:51)
[2023-02-06 11:03] VITALS: BP 143/86
[2023-02-06] MEDS: oxyCODONE/APAP 5-325mg tablet PO PRN (12:07)
[2023-02-06] MEDS ORDERED: ALPRAZolam 0.25mg tablet PO PRN (14:45)
--- NOTE | 2023-02-06 16:21 | NUR ---
Patient appeared progressively more anxious. Dr swartz contacted order given for xanax. patient however informed staff that he was very anxious about losing his job and place to live, and wanting to leave. DR swartz contacted again with regards this to see if patient could be Dc today instead of tomorrow. patient meanwhile decided to leave [facility], whilst staff was waiting for dr swartz to reply. Patient did not have any IV access. He also had informed staff that he did have some meth in his clothes pocket . patient left ber[place] security was able to come and confiscate mentioned drug. 1600hrs. 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 Informed.
[2023-02-06] MEDS ORDERED: VANCOMYCIN LEVEL IV ONE (20:30)
== END 2023-02-06 15:40 | disposition left against medical advice (07) | DRG 315 ==
LOC: ER 17:48 → ED HOLD 23:26 → ORTHO 4S 02-03 03:15
PROVIDERS: ADMIT Internal Medicine; ATTEND Internal Medicine
PROC: 0PBL0ZZ Excision of Left Ulna, Open Approach (ICD-10-PCS; principal; 2023-02-04 07:20)
DX: S51.012A Laceration without foreign body of left elbow, initial encounter (principal); D72.829 Elevated white blood cell count, unspecified; F15.90 Other stimulant use, unspecified, uncomplicated; F17.200 Nicotine dependence, unspecified, uncomplicated; I10 Essential (primary) hypertension; F41.9 Anxiety disorder, unspecified; V23.49XA Other motorcycle driver injured in collision with car, pick-up truck or van in traffic accident, initial encounter; Y93.89 Activity, other specified; Y92.89 Other specified places as the place of occurrence of the external cause; Y99.8 Other external cause status; Z88.5 Allergy status to narcotic agent; Z88.8 Allergy status to other drugs, medicaments and biological substances
CPT/HCPCS: 36415; 73030; 73060; 73080; 80053; 80202; 83605; 83735; 84145; 85025; 85610; 85730; 87040; 87070; 87075; 87081; 93005; 99285; A4618; A6223; A6253; A6258; A6446; A6449; A7000; G0378; J1100; J2250; J2405; J2543; J2704; J3010; J3370; J3490; J7030

== ENCOUNTER 2023-02-14 17:02 | Emergency (ER) | payer MEDICAID ==
[~2023-02-14] VITALS: Ht 180.3 cm; Wt 90.9 kg
[~2023-02-14 17:02] MED LIST changes: -CLIN-97 PO; +NO HOME MEDS; -OMEP20CA4 PO; -TOLN30CR TP
[2023-02-14] MEDS ORDERED: normal saline 1000ml 1,000 ML IV ONE (18:40)
[2023-02-14] MEDS ORDERED: vancomycin/NS 1 GM ADD-VANTAGE 250 ML IV ONE (18:40)
[2023-02-14 18:58] LABS: BASOPHILS # (AUTO) 0.1 X10'3 (0-0.2); BASOPHILS % (AUTO) 0.7 % (0-1); EOSINOPHILS # (AUTO) 0.4 X10'3 (0-0.9); EOSINOPHILS % (AUTO) 4.2 % (0-6); HEMATOCRIT 41.1 % (42.0-52.0); HEMOGLOBIN 13.8 g/dl (14.0-17.9); LYMPHOCYTES # (AUTO) 2.2 X10'3 (1.1-4.8); LYMPHOCYTES % (AUTO) 21.9 % (21-51); MEAN CORPUSCULAR HEMOGLOBIN 29.2 PG (27.0-31.0); MEAN CORPUSCULAR HGB CONC 33.7 g/dL (33.0-36.5); MEAN CORPUSCULAR VOLUME 86.7 FL (78-98); MONOCYTES # (AUTO) 0.7 X10'3 (0-0.9); MONOCYTES % (AUTO) 6.9 % (2-12); NEUTROPHILS # (AUTO) 6.7 X10'3 (1.8-7.7); NEUTROPHILS % (AUTO) 66.3 % (42-75); PLATELET COUNT 242 X10'3 (140-440); RED BLOOD COUNT 4.75 X10'6 (4.70-6.10); RED CELL DISTRIBUTION WIDTH 14.4 % (11.5-14.5); WHITE BLOOD COUNT 10.2 X10'3 (4.5-11.0)
[2023-02-14 19:14] LABS: ALANINE AMINOTRANSFERASE 17 U/L (12-78); ALBUMIN 3.6 G/DL (3.4-5.0); ALBUMIN/GLOBULIN RATIO 1.3 (1.1-1.5); ALKALINE PHOSPHATASE 101 IU/L (46-116); ANION GAP 7 (8-16); ASPARTATE AMINO TRANSFERASE 11 U/L (10-37); BILIRUBIN,TOTAL 0.3 MG/DL (0.1-1.0); BLOOD UREA NITROGEN 12 MG/DL (7-18); CALCIUM 8.8 MG/DL (8.5-10.1); CHLORIDE 107 MMOL/L (99-107); GLUCOSE 98 MG/DL (70-104); MAGNESIUM 2.1 MG/DL (1.5-2.4); POTASSIUM 3.4 MMOL/L (3.5-5.1); SODIUM 142 MMOL/L (135-145); TOTAL CARBON DIOXIDE 27.7 MMOL/L (24-32); TOTAL PROTEIN 6.3 G/DL (6.4-8.2); eGFR 80 ML/MIN
[2023-02-14] MEDS ORDERED: SULF1TAB49 PO (20:24)
[2023-02-14 21:14] VITALS: BP 156/89
== END 2023-02-14 21:20 | disposition home or self-care (01) ==
LOC: ER 17:03
DX: L03.114 Cellulitis of left upper limb (principal); I10 Essential (primary) hypertension; F17.200 Nicotine dependence, unspecified, uncomplicated; F15.90 Other stimulant use, unspecified, uncomplicated; Z98.890 Other specified postprocedural states; Z88.5 Allergy status to narcotic agent; Z88.8 Allergy status to other drugs, medicaments and biological substances; Z79.899 Other long term (current) drug therapy
CPT/HCPCS: 36415; 71045; 73080; 80053; 83605; 83735; 84145; 85025; 87040; 93005; 96365; 96366; 99285; J3370; J7030

== ENCOUNTER 2024-09-22 02:19 | Emergency (ER) | payer MEDICAID, OTHER ==
[~2024-09-22] VITALS: Ht 180.3 cm; Wt 97.7 kg
[2024-09-22] MEDS: LORazepam 1 MG tablet PO ONE (02:54)
[2024-09-22 03:10] LABS: BASOPHILS # (AUTO) 0.1 X10'3 (0-0.2); BASOPHILS % (AUTO) 0.9 % (0-1); EOSINOPHILS # (AUTO) 0.3 X10'3 (0-0.9); EOSINOPHILS % (AUTO) 3.5 % (0-6); HEMATOCRIT 46.9 % (42.0-52.0); HEMOGLOBIN 15.7 g/dl (14.0-17.9); LYMPHOCYTES # (AUTO) 2.7 X10'3 (1.1-4.8); LYMPHOCYTES % (AUTO) 29.8 % (21-51); MEAN CORPUSCULAR HGB CONC 33.6 g/dL (33.0-36.5); MEAN CORPUSCULAR VOLUME 86.3 FL (78-98); MEAN PLATELET VOLUME 7.3 FL (7.4-10.4); MONOCYTES # (AUTO) 0.7 X10'3 (0-0.9); MONOCYTES % (AUTO) 7.3 % (2-12); NEUTROPHILS # (AUTO) 5.2 X10'3 (1.8-7.7); NEUTROPHILS % (AUTO) 58.5 % (42-75); PLATELET COUNT 256 X10'3 (140-440); RED BLOOD COUNT 5.43 X10'6 (4.70-6.10); RED CELL DISTRIBUTION WIDTH 14.2 % (11.5-14.5)
[2024-09-22 03:25] LABS: ALANINE AMINOTRANSFERASE 22 U/L (12-78); ALBUMIN/GLOBULIN RATIO 1.4 (1.1-1.5); ALKALINE PHOSPHATASE 102 IU/L (46-116); ANION GAP 5 (8-16); ASPARTATE AMINO TRANSFERASE 10 U/L (10-37); BILIRUBIN,TOTAL 0.4 MG/DL (0.1-1.0); BLOOD UREA NITROGEN 13 MG/DL (7-18); BUN/CREATININE RATIO 10.7 (10.0-20.0); CALCIUM 8.8 MG/DL (8.5-10.1); CHLORIDE 106 MMOL/L (99-107); CREATININE 1.21 MG/DL (0.60-1.10); GLUCOSE 95 MG/DL (70-104); POTASSIUM 3.5 MMOL/L (3.5-5.1); SODIUM 142 MMOL/L (135-145); TOTAL CARBON DIOXIDE 31.1 MMOL/L (24-32); TOTAL PROTEIN 6.9 G/DL (6.4-8.2); eCRCL 80 ML/MIN; eGFR 64 ML/MIN
[2024-09-22] MEDS ORDERED: AMLO5TAB5 PO (04:41)
[2024-09-22] MEDS: amLODIPine 5mg tablet PO ONE (05:01)
[2024-09-22 05:05] VITALS: BP 156/106; PULSE 90; RESP 18; TEMP 98.6; O2SAT 99
== END 2024-09-22 05:10 | disposition home or self-care (01) ==
LOC: ER 02:19
DX: R42 Dizziness and giddiness (principal); R07.89 Other chest pain; I10 Essential (primary) hypertension; F15.90 Other stimulant use, unspecified, uncomplicated; Z88.5 Allergy status to narcotic agent; Z98.890 Other specified postprocedural states
CPT/HCPCS: 36415; 71045; 80053; 84484; 85025; 93005; 99285